=== PATIENT | male | born 1990 | race African-American/Black ===

== ENCOUNTER 2024-02-09 23:55 | Inpatient (IN) | payer OTHER ==
[2024-02-10 00:01] VITALS: BMI 18.3
[2024-02-10] MEDS ORDERED: ACETAMINOPHEN INJECTION 100 ML ONE (00:26)
[2024-02-10] MEDS: ACETAMINOPHEN 1000 MG/100 ML BAG IVPB ONE (00:28)
[2024-02-10 00:36] LABS: BASO % 0.7 % (0-2.0); EOS % 0.9 % (0-4.5); HEMOGLOBIN 16.5 GM/dL (11.7-16.9); LYMPH % 21.7 % (8-40); MCH 31.6 pg (25.7-33.7); MCHC 35.1 g/dl (32.0-35.9); MEAN CELL VOLUME 90.2 fl (80-96); MEAN PLT VOLUME 8.8 fl (7.5-11.1); NEUT % 67.7 % (42.8-82.8); PLATELET COUNT 169 10^3/uL (134-434); RBC 5.22 M/mm3 (4.00-5.60); RDW 14.2 % (11.9-15.9); WHITE BLOOD COUNT 6.6 K/mm3 (4.0-10.0)
[2024-02-10 00:53] LABS: VENOUS BASE EXCESS -0.5 mmol/L (-2-2); VENOUS O2 SATURATION 63.1 % (70-80); VENOUS PCO2 48.9 mmHg (38-52); VENOUS PH 7.343 (7.310-7.410)
[2024-02-10 00:57] LABS: POTASSIUM 4.4 mmol/L (3.5-5.1)
[2024-02-10 01:00] LABS: ALBUMIN 4.5 g/dl (3.4-5.0); CALCIUM 9.9 mg/dL (8.5-10.1)
[2024-02-10 01:03] LABS: CREATININE 0.9 mg/dL (0.55-1.3)
[2024-02-10 01:05] LABS: BILIRUBIN,TOTAL 1.6 mg/dL (0.2-1); TOT PROT 8.4 g/dl (6.4-8.2)
[2024-02-10 01:29] LABS: INR 1.14 (0.83-1.09); PROTHROMBIN TIME (PATIENT) 12.8 SEC (9.7-13.0)
[2024-02-10 01:32] LABS: ACTIVATED PTT 35.3 SECONDS (25.2-36.5)
[2024-02-10] MEDS ORDERED: MIDAZOLAM HCL 2 MG/2 ML SINGLE DOSE VIAL ONE (01:53)
[2024-02-10] MEDS ORDERED: FENTANYL CITRATE/PF 50 MCG/ML VIAL ONE ×3 (01:54→03:48)
[2024-02-10] MEDS: MIDAZOLAM HCL 2 MG/2 ML SINGLE DOSE VIAL IVPUSH ONE (03:01)
[2024-02-10] MEDS ORDERED: morphine SULFATE 4 MG/ML VIAL ONE (04:52)
[2024-02-10] MEDS: morphine SULFATE 4 MG/ML VIAL IVPUSH ONE (05:15)
[2024-02-10 09:57] LABS: POTASSIUM 4.3 mmol/L (3.5-5.1)
[2024-02-10 09:59] LABS: BLOOD UREA NITROGEN 18.9 mg/dL (7-18); CALCIUM 9.4 mg/dL (8.5-10.1)
[2024-02-10 10:00] LABS: MAGNESIUM 1.9 mg/dL (1.8-2.4)
[2024-02-10 10:02] LABS: CREATININE 0.9 mg/dL (0.55-1.3); PHOSPHOROUS 4.4 mg/dL (2.5-4.9)
[2024-02-10] MEDS: KETOROLAC TROMETHAMINE 30 MG/1 ML VIAL IVPUSH PRN (11:00)
[2024-02-10] MEDS: ACETAMINOPHEN 1000 MG/100 ML BAG IVPB PRN (11:06)
[2024-02-10] MEDS: LACTATED RINGERS SOLUTION 1,000 ML/1,000 ML INFUS.BAG IV SCH (11:43)
[2024-02-10] MEDS: ENOXAPARIN NA (PORCINE) 40 MG/0.4 ML DISP.SYRIN SQ SCH (12:08)
[2024-02-10 17:25] LABS: HIV INTERPRETATION NEGATIVE (NEGATIVE)
[2024-02-10 19:14] LABS: BILIRUBIN,DIRECT 0.5 mg/dL (0.0-0.2)
[2024-02-11] MEDS: ACETAMINOPHEN 1000 MG/100 ML BAG IVPB PRN (15:38)
[2024-02-12 08:47] LABS: POTASSIUM 4.1 mmol/L (3.5-5.1)
[2024-02-12 08:53] LABS: BLOOD UREA NITROGEN 18.1 mg/dL (7-18); CALCIUM 9.1 mg/dL (8.5-10.1)
[2024-02-12 08:58] LABS: BILIRUBIN,TOTAL 0.8 mg/dL (0.2-1)
[2024-02-12 08:59] LABS: CREATININE 0.9 mg/dL (0.55-1.3)
[2024-02-12 09:08] LABS: ALBUMIN 3.4 g/dl (3.4-5.0); TOT PROT 6.4 g/dl (6.4-8.2)
[2024-02-12] MEDS ORDERED: ACETAMINOPHEN 1000 MG/100 ML BAG IVPB SCH (12:30)
[2024-02-12] MEDS: ACETAMINOPHEN 1000 MG/100 ML BAG IVPB PRN (15:31)
[2024-02-12] MEDS: CEFTRIAXONE 1 G/50 ML PREMIX 50 ML IVPB SCH (15:56)
[2024-02-13] MEDS: KETOROLAC TROMETHAMINE 15 MG/ML VIAL IVPUSH PRN (05:51)
[2024-02-13] MEDS: LIDOCAINE 5% TOPICAL PATCH TP SCH (11:45)
[2024-02-13] MEDS: LIDOCAINE PATCH REMOVAL MC SCH (21:26)
[2024-02-14 10:11] LABS: POTASSIUM 4.4 mmol/L (3.5-5.1)
[2024-02-14 10:20] LABS: CALCIUM 9.6 mg/dL (8.5-10.1)
[2024-02-14 10:21] LABS: ALBUMIN 3.6 g/dl (3.4-5.0); BLOOD UREA NITROGEN 15.5 mg/dL (7-18)
[2024-02-14 10:24] LABS: BILIRUBIN,TOTAL 0.7 mg/dL (0.2-1)
[2024-02-14 11:10] LABS: BASO % 0.3 % (0-2.0); EOS % 9.7 % (0-4.5); HEMATOCRIT 41.8 % (35.4-49); HEMOGLOBIN 14.5 GM/dL (11.7-16.9); LYMPH % 24.6 % (8-40); MCH 31.4 pg (25.7-33.7); MCHC 34.6 g/dl (32.0-35.9); MEAN CELL VOLUME 90.7 fl (80-96); MEAN PLT VOLUME 8.6 fl (7.5-11.1); MONO % 10.1 % (3.8-10.2); NEUT % 55.3 % (42.8-82.8); PLATELET COUNT 157 10^3/uL (134-434); RBC 4.61 M/mm3 (4.00-5.60); WHITE BLOOD COUNT 4.9 K/mm3 (4.0-10.0)
[2024-02-15 10:01] LABS: BASO % 0.8 % (0-2.0); EOS % 11.4 % (0-4.5); HEMATOCRIT 41.1 % (35.4-49); HEMOGLOBIN 14.2 GM/dL (11.7-16.9); LYMPH % 20.6 % (8-40); MCH 31.3 pg (25.7-33.7); MCHC 34.6 g/dl (32.0-35.9); MEAN CELL VOLUME 90.4 fl (80-96); MEAN PLT VOLUME 8.5 fl (7.5-11.1); MONO % 9.3 % (3.8-10.2); NEUT % 57.9 % (42.8-82.8); PLATELET COUNT 155 10^3/uL (134-434); RBC 4.55 M/mm3 (4.00-5.60); RDW 13.9 % (11.9-15.9); WHITE BLOOD COUNT 3.5 K/mm3 (4.0-10.0)
[2024-02-15 10:17] LABS: CALCIUM 9.2 mg/dL (8.5-10.1)
[2024-02-15 10:18] LABS: ALBUMIN 3.5 g/dl (3.4-5.0)
[2024-02-15 10:22] LABS: BILIRUBIN,TOTAL 0.4 mg/dL (0.2-1); TOT PROT 6.8 g/dl (6.4-8.2)
[2024-02-16 09:16] VITALS: RESP 16
[2024-02-16 14:10] VITALS: BP 100/69; PULSE 76; TEMP 98.4
== END 2024-02-16 14:19 | disposition home or self-care (01) | DRG 143 ==
LOC: JER 23:55 → JERBED 02-10 04:10 → J5S 02-10 09:14
PROVIDERS: ADMIT Internal Medicine
PROC: 0W9930Z Drainage of Right Pleural Cavity with Drainage Device, Percutaneous Approach (ICD-10-PCS; principal; 2024-02-10)
DX: J93.11 Primary spontaneous pneumothorax (principal); J18.9 Pneumonia, unspecified organism; E44.0 Moderate protein-calorie malnutrition; E88.09 Other disorders of plasma-protein metabolism, not elsewhere classified; E80.6 Other disorders of bilirubin metabolism; F17.200 Nicotine dependence, unspecified, uncomplicated; J45.909 Unspecified asthma, uncomplicated; Z68.1 Body mass index [BMI] 19.9 or less, adult
CPT/HCPCS: 0241U-QW; 36415; 71045-TC-FY; 71250-TC; 80048; 80053; 82248; 82803; 83605; 83735; 84100; 84443; 84484; 85025; 85610; 85730; 86803; 86850; 86900; 86901; 87389; 93005; 93010; 94010; 97116-GP; 97161-GP; 99291; J0131